=== PATIENT | female | born 1960 | race Caucasian/White ===

== ENCOUNTER 2017-04-01 08:21 | Emergency (ER) | payer BC ==
--- NOTE | 2017-04-01 08:57 | EDM.PDOC ---
ED HPI GENERAL MEDICAL PROBLEM - General Chief Complaint: Respiratory Problem Stated Complaint: COUGH, SHORTNESS OF BREATH Time Seen by Provider: 04/01/17 08:36 Source of Information: Reports: Patient History Limitations: Reports: No Limitations - History of Present Illness INITIAL COMMENTS - FREE TEXT/NARRATIVE: History of present illness: []Patient has had over a week of cold symptoms and was treated with an antibiotic without relief of symptoms. She uses a nebulizer and inhaler at home and inhaled steroid but has not been on prednisone. She continues wheezing and coughing. Review of systems: As per history of present illness and below otherwise all systems reviewed and negative. Past medical history: As per history of present illness and as reviewed below otherwise noncontributory. Surgical history: As per history of present illness and as reviewed below otherwise noncontributory. Social history: No reported history of drug or alcohol abuse. Family history: As per history of present illness and as reviewed below otherwise noncontributory. Physical exam: General: Well developed, well nourished in NAD HEENT: Atraumatic, normocephalic, pupils reactive, negative for conjunctival pallor or scleral icterus, mucous membranes moist, throat clear, neck supple, nontender, trachea midline. Lungs: Clear to auscultation, breath sounds equal bilaterally, chest nontender. Expiratory wheezing no chest wall retractions or respiratory distress Heart: S1S2, regular, negative for clicks, rubs, or JVD. Abdomen: Soft, nondistended, nontender. Negative for masses or hepatosplenomegaly. Negative for costovertebral tenderness. Pelvis: Stable nontender. Genitourinary: Deferred. Rectal: Deferred. Extremities: Atraumatic, negative for cords or calf pain. Neurovascular unremarkable. Neuro: Awake, alert, oriented. Cranial nerves II through XII unremarkable. Cerebellum unremarkable. Motor and sensory unremarkable throughout. Exam nonfocal. Diagnostics: [] Therapeutics: []On DuoNeb given Impression: []Asthma exacerbation Plan: []Prednisone 5 day burst, continue nebs at home as directed. Definitive disposition and diagnosis as appropriate pending reevaluation and review of above. - Related Data Allergies Allergy/AdvReac Type Severity Reaction Status Date / Time pseudoephedrine HCl Allergy Unknown Hives Verified 04/01/17 08:37 [facility] Home Meds: Home Meds LORazepam [Ativan] 0.5 mg PO DAILY PRN 11/22/13 [History] Levothyroxine 137 mcg PO ACBRK 11/22/13 [History] Metoprolol Tartrate 12.5 mg PO BID 11/22/13 [History] risperiDONE [Risperdal] 1 mg PO BID PRN 11/22/13 [History] risperiDONE [Risperdal] 2 mg PO BEDTIME 11/22/13 [History] risperiDONE [Risperdal] 4 mg PO ACBRK 11/22/13 [History] Albuterol [Ventolin HFA] 1 - 2 puff INH DAILY PRN 04/18/14 [History] Benztropine [Cogentin] 0.5 mg PO BID 04/01/17 [History] Losartan [Cozaar] 100 mg PO DAILY 04/01/17 [History] Sulfamethoxazole/Trimethoprim [Septra DS] 800 mg PO BID 04/01/17 [History] predniSONE [Prednisone] 20 mg PO DAILY #5 tablet 04/01/17 [Rx] Past Medical History HEENT History: Reports: None Cardiovascular History: Reports: Heart Failure, Hypertension Respiratory History: Reports: Bronchitis, Recurrent Gastrointestinal History: Reports: None Genitourinary History: Reports: Hydronephrosis 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 Musculoskeletal History: Reports: None Neurological History: Reports: None Psychiatric History: Reports: Anxiety, Depression, Schizophrenia Hematologic History: Reports: None Oncologic (Cancer) History: Reports: None Dermatologic History: Reports: None - Past Surgical History Female Surgical History: Reports: Section Social & Family History - Tobacco Use Smoking Status *Q: Current Every Day Smoker Years of Tobacco use: 40 Packs/Tins Daily: 0.5 Second Hand Smoke Exposure: Yes - Caffeine Use Caffeine Use: Reports: Coffee - Alcohol Use Days Per Week of Alcohol Use: 5 Number of Drinks Per Day: 2 Total Drinks Per Week: 10 - Recreational Drug Use Recreational Drug Use: No Drug Use in Last 12 Months: No Recreational Drug Type: Reports: Methamphetamine Recreational Drug Use Frequency: Not Used In Over 6 Months ED ROS GENERAL - Review of Systems Review Of Systems: See Below (See history of present illness) ED EXAM, GENERAL - Physical Exam Exam: See Below (See history of present illness) Course - Vital Signs Last Recorded V/S: Last Vital Signs Temp 98.7 F 04/01/17 10:31 Pulse 85 04/01/17 10:31 Resp 20 04/01/17 10:31 BP 112/65 04/01/17 10:31 Pulse Ox 92 L 04/01/17 10:31 - Orders/Labs/Meds Orders: Active Orders 24 hr Category Date Time Status RT Aerosol Therapy [RC] ASDIRECTED Care 04/01/17 09:23 Active Meds: Medications Discontinued Medications Generic Name Dose Route Start Last Admin Trade Name Gillian PRN Reason Stop Dose Admin Albuterol/Ipratropium 3 ml 04/01/17 09:22 04/01/17 09:36 Duoneb 3.0-0.5 Mg/3 Ml NEB 04/01/17 09:23 3 ml ONETIME ONE Administration Prednisone 60 mg 04/01/17 09:22 04/01/17 09:28 Prednisone PO 04/01/17 09:23 60 mg ONETIME ONE Administration Departure - Departure Time of Disposition: 10:14 Disposition: Home, Self-Care 01 Condition: Good Clinical Impression: Asthma exacerbation Qualifiers: Asthma severity: moderate Asthma persistence: unspecified Qualified Code(s): J45.901 - Unspecified asthma with (acute) exacerbation URI (upper respiratory infection) Qualifiers: Airway obstruction: without obstruction - Discharge Information Prescriptions: predniSONE [Prednisone] 20 mg PO DAILY #5 tablet Instructions: Asthma, Adult, Upper Respiratory Infection, Adult, [id number] Referrals: Colten Morales MD [Primary Care Provider] - (Follow-up as needed) Forms: ED Department Discharge Additional Instructions: The following information is given to patients seen in the emergency department who are being discharged to home. This information is to outline your options for follow-up care. We provide all patients seen in our emergency department with a follow-up referral. The need for follow-up, as well as the timing and circumstances, are variable depending upon the specifics of your emergency department visit. If you don't have a primary care physician on staff, we will provide you with a referral. We always advise you to contact your personal physician following an emergency department visit to inform them of the circumstance of the visit and for follow-up with them and/or the need for any referrals to a consulting specialist. The emergency department will also refer you to a specialist when appropriate. This referral assures that you have the opportunity for follow-up care with a specialist. All of these measure are taken in an effort to provide you with optimal care, which includes your follow-up. Under all circumstances we always encourage you to contact your private physician who remains a resource for coordinating your care. When calling for follow-up care, please make the office aware that this follow-up is from your recent emergency room visit. If for any reason you are refused follow-up, please contact the [facility] Emergency Department at and asked to speak to the emergency department charge nurse. Prednisone 1 tablet daily for 5 days then stop. His nebs as directed for wheezing and shortness of breath. Follow-up with your primary care physician as needed. - My Orders Last 24 Hours: My Active Orders 04/01/17 09:23 RT Aerosol Therapy [RC] ASDIRECTED - Assessment/Plan Last 24 Hours: My Active Orders 04/01/17 09:23 RT Aerosol Therapy [RC] ASDIRECTED
[2017-04-01] MEDS ORDERED: predniSONE 20 MG Tab PO ONE (09:22)
[2017-04-01] MEDS ORDERED: Albuterol/Ipratropium 3.0-0.5 MG/3 ML Neb Soln NEB ONE (09:22)
[2017-04-01 10:36] VITALS: BP 112/65
== END 2017-04-01 10:31 | disposition home or self-care (01) ==
LOC: MW.ED 08:21
DX: J45.901 Unspecified asthma with (acute) exacerbation (principal); J06.9 Acute upper respiratory infection, unspecified; I11.0 Hypertensive heart disease with heart failure; I50.9 Heart failure, unspecified; F17.210 Nicotine dependence, cigarettes, uncomplicated; Z88.8 Allergy status to other drugs, medicaments and biological substances; Z79.899 Other long term (current) drug therapy
CPT/HCPCS: 94640; 99283; A9270

== ENCOUNTER 2017-04-24 21:26 | Emergency (ER) | payer BC ==
[2017-04-24] MEDS ORDERED: Albuterol/Ipratropium 3.0-0.5 MG/3 ML Neb Soln ONE (21:32)
[2017-04-24] MEDS ORDERED: methylPREDNISolone Sodium Succinate 125 MG/2 ML SDV IVPUSH ONE (21:38)
[2017-04-24] MEDS ORDERED: Sodium Chloride 0.9% 10 ML Syringe FLUSH PRN (21:38)
[2017-04-24] MEDS ORDERED: Sodium Chloride 0.9% 2.5 ML Syringe FLUSH PRN (21:38)
--- NOTE | 2017-04-24 21:41 | EDM.PDOC ---
<Ama Pang - Last Filed: 04/24/17 21:53> ED HPI GENERAL MEDICAL PROBLEM - General Chief Complaint: Respiratory Problem Stated Complaint: TROUBLE BREATHING Time Seen by Provider: 04/24/17 21:39 Source of Information: Reports: Patient, Family History Limitations: Reports: No Limitations - History of Present Illness INITIAL COMMENTS - FREE TEXT/NARRATIVE: HISTORY AND PHYSICAL: []6-year-old female presenting with shortness of breath she has history of COPD and exacerbation History of Present Illness: []Patient was having difficulty for the last couple days History of asthma History of dyspnea Smoking Heart failure Review of Systems: As per history of present illness and below otherwise all systems reviewed and negative. Past medical history: As per history of present illness and as reviewed below otherwise noncontributory. Surgical history: As per history of present illness and as reviewed below otherwise noncontributory. Social history: No reported history of drug or alcohol abuse. Family history: As per history of present illness and as reviewed below otherwise noncontributory. Physical exam: Alert and oriented female answering questions cannot speak in full sentences due to shortness of breath. HEENT: Atraumatic, normocehpalic, pupils reactive, negative for conjunctival pallor or scleral icterus, mucous membranes moist, throat red neck supple, nontender, trachea midline. Panic membranes are erythematous on the left. Speaking normally without any hoarseness. Lungs: Mild bibasilar crackles on auscultation, shallow breath sounds equal bilaterally, chest non tender. Heart: S1S2, regular, negative for clicks, rubs, or JVD. Abdomen: Soft, nondistended, nontender. Negative for masses or hepatossplenmegaly. Negative for costovertebral tenderness. Pelvis: Stable nontender. Genitourinary: Deferred. Rectal: Deferred Extremities: Atraumatic, negative for cords or calf pain. Neurovascular unremarkable. Neuro: Awake, alert, oriented. Cranial nerves II through XII unremarkable. Cerebellum unremarkable. Motor and sensory unremarkable throughout. Exam nonfocal. After her first RT treatment lungs improved but continues to have shallow breath sounds and mild crackles. Report has been given to Dr. Smith for continuing care. Diagnostics: [CBC CMP chest x-ray] influenza rapid strep BNP Therapeutics: []DuoNeb treatment Solu-Medrol IV Impression: []COPD exacerbation Otitis media Plan: [] Definitive disposition and diagnosis as appropriate pending reevaluation and review of above. Onset: Gradual Location: Reports: Head, Chest Quality: Reports: Same as Previous Episode Severity: Moderate Improves with: Reports: None Worsens with: Reports: None Associated Symptoms: Reports: Cough, Shortness of Breath no pain Pain Score (Numeric/FACES): 0 - Related Data Allergies Allergy/AdvReac Type Severity Reaction Status Date / Time pseudoephedrine HCl Allergy Unknown Hives Verified 04/24/17 21:41 [From Sudafed] Home Meds: Home Meds LORazepam [Ativan] 0.5 mg PO DAILY PRN 11/22/13 [History] Levothyroxine 137 mcg PO ACBRK 11/22/13 [History] Metoprolol Tartrate 12.5 mg PO BID 11/22/13 [History] risperiDONE [Risperdal] 1 mg PO BID PRN 11/22/13 [History] risperiDONE [Risperdal] 2 mg PO BEDTIME 11/22/13 [History] risperiDONE [Risperdal] 4 mg PO ACBRK 11/22/13 [History] Albuterol [Ventolin HFA] 1 - 2 puff INH DAILY PRN 04/18/14 [History] Benztropine [Cogentin] 0.5 mg PO BID 04/01/17 [History] Losartan [Cozaar] 100 mg PO DAILY 04/01/17 [History] Sulfamethoxazole/Trimethoprim [Septra DS] 800 mg PO BID 04/01/17 [History] predniSONE [Prednisone] 20 mg PO DAILY #5 tablet 04/01/17 [Rx] Past Medical History HEENT History: Reports: None Cardiovascular History: Reports: Heart Failure, Hypertension Respiratory History: Reports: Bronchitis, Recurrent Gastrointestinal History: Reports: None Genitourinary History: Reports: Hydronephrosis 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 Musculoskeletal History: Reports: None Neurological History: Reports: None Psychiatric History: Reports: Anxiety, Depression, Schizophrenia Hematologic History: Reports: None Oncologic (Cancer) History: Reports: None Dermatologic History: Reports: None - Past Surgical History Female Surgical History: Reports: Section Social & Family History - Tobacco Use Smoking Status *Q: Current Every Day Smoker Years of Tobacco use: 40 Packs/Tins Daily: 0.5 Second Hand Smoke Exposure: Yes - Caffeine Use Caffeine Use: Reports: Coffee - Alcohol Use Days Per Week of Alcohol Use: 5 Number of Drinks Per Day: 2 Total Drinks Per Week: 10 - Recreational Drug Use Recreational Drug Use: No Drug Use in Last 12 Months: No Recreational Drug Type: Reports: Methamphetamine Recreational Drug Use Frequency: Not Used In Over 6 Months ED ROS GENERAL - Review of Systems Review Of Systems: ROS reveals no pertinent complaints other than HPI. ED EXAM, GENERAL - Physical Exam Exam: See Below (See dictation) Course - Vital Signs Last Recorded V/S: Last Vital Signs Temp 97.8 F 04/24/17 21:30 Pulse 120 H 04/24/17 21:30 Resp 24 H 04/24/17 21:30 BP 102/65 04/24/17 21:30 Pulse Ox 78 L 04/24/17 21:30 - Orders/Labs/Meds Orders: Active Orders 24 hr Category Date Time Status EKG Documentation Completion [RC] STAT Care 04/24/17 21:49 Active CTA Chest W WO Contrast [Ang Chest] [CT] Stat Exams 04/24/17 22:12 Stop Req Chest 1V Frontal [CR] Stat Exams 04/24/17 21:38 Taken CULTURE STREP A CONFIRMATION [RM] Stat Lab 04/24/17 22:45 Results INFLUENZA A+B AG SCREEN [RM] Stat Lab 04/24/17 23:08 Uncollected STREP SCRN A RAPID W CULT CONF [RM] Stat Lab 04/24/17 22:45 Results Sodium Chloride 0.9% [Saline Flush] Med 04/24/17 21:38 Active 10 ml FLUSH ASDIRECTED PRN Sodium Chloride 0.9% [Saline Flush] Med 04/24/17 21:38 Active 2.5 ml FLUSH ASDIRECTED PRN Saline Lock Insert [OM.PC] Stat Oth 04/24/17 21:38 Ordered Medication Orders Sodium Chloride (Saline Flush) 10 ml FLUSH ASDIRECTED PRN PRN Reason: Keep Vein Open Sodium Chloride (Saline Flush) 2.5 ml FLUSH ASDIRECTED PRN PRN Reason: Keep Vein Open Labs: Laboratory Tests 04/24/17 04/24/17 04/24/17 Range/Units 22:19 22:19 22:19 WBC 4.18 (4.0-11.0) K/uL RBC 3.77 L (4.30-5.90) M/uL Hgb 12.8 (12.0-16.0) g/dL Hct 38.8 (36.0-46.0) % MCV 102.9 H (80.0-98.0) fL MCH 34.0 H (27.0-32.0) pg MCHC 33.0 (31.0-37.0) g/dL RDW Std Deviation 51.8 (28.0-62.0) fl RDW Coeff of Narayan 14 (11.0-15.0) % Plt Count 139 L (150-400) K/uL MPV 9.70 (7.40-12.00) fL Neut % (Auto) 76.0 (48.0-80.0) % Lymph % (Auto) 9.3 L (16.0-40.0) % Sully % (Auto) 11.2 (0.0-15.0) % Eos % (Auto) 3.3 (0.0-7.0) % Baso % (Auto) 0.2 (0.0-1.5) % Neut # (Auto) 3.2 (1.4-5.7) K/uL Lymph # (Auto) 0.4 L (0.6-2.4) K/uL Sully # (Auto) 0.5 (0.0-0.8) K/uL Eos # (Auto) 0.1 (0.0-0.7) K/uL Baso # (Auto) 0.0 (0.0-0.1) K/uL Nucleated RBC % 0.0 /100WBC Nucleated RBCs # 0 K/uL INR D-Dimer, Quantitative (0.0-0.52) mg/LFEU Sodium 136 (136-146) mmol/L Potassium 3.2 L (3.5-5.1) mmol/L Chloride 101 (98-110) mmol/L Carbon Dioxide 23 (21-31) mmol/L BUN 25 H (6.0-23.0) mg/dL Creatinine 1.7 H (0.6-1.5) mg/dL Est Cr Clr Drug Dosing 32.29 mL/min Estimated GFR (MDRD) 31.2 ml/min Glucose 130 H (60-110) mg/dL Calcium 8.9 (8.8-10.8) mg/dL Total Bilirubin 0.4 (0.1-1.5) mg/dL AST 24 (5-40) IU/L ALT 29 (8-54) IU/L Alkaline Phosphatase 58 (40-150) Creatine Kinase (9-236) IU/L CK-MB (CK-2) (0-6.6) ng/ml Troponin I (0.0-0.29) NG/ML B-Natriuretic Peptide < 15 (<100) PG/ML Total Protein 6.9 (6.0-8.0) g/dL Albumin 4.1 (3.5-5.0) g/dL Globulin 2.8 (2.0-3.5) g/dL Albumin/Globulin Ratio 1.5 (1.3-2.8) 04/24/17 04/24/17 04/24/17 Range/Units 22:19 22:19 22:19 WBC (4.0-11.0) K/uL RBC (4.30-5.90) M/uL Hgb (12.0-16.0) g/dL Hct (36.0-46.0) % MCV (80.0-98.0) fL MCH (27.0-32.0) pg MCHC (31.0-37.0) g/dL RDW Std Deviation (28.0-62.0) fl RDW Coeff of Narayan (11.0-15.0) % Plt Count (150-400) K/uL MPV (7.40-12.00) fL Neut % (Auto) (48.0-80.0) % Lymph % (Auto) (16.0-40.0) % Sully % (Auto) (0.0-15.0) % Eos % (Auto) (0.0-7.0) % Baso % (Auto) (0.0-1.5) % Neut # (Auto) (1.4-5.7) K/uL Lymph # (Auto) (0.6-2.4) K/uL Sully # (Auto) (0.0-0.8) K/uL Eos # (Auto) (0.0-0.7) K/uL Baso # (Auto) (0.0-0.1) K/uL Nucleated RBC % /100WBC Nucleated RBCs # K/uL INR 1.01 D-Dimer, Quantitative 0.24 (0.0-0.52) mg/LFEU Sodium (136-146) mmol/L Potassium (3.5-5.1) mmol/L Chloride (98-110) mmol/L Carbon Dioxide (21-31) mmol/L BUN (6.0-23.0) mg/dL Creatinine (0.6-1.5) mg/dL Est Cr Clr Drug Dosing mL/min Estimated GFR (MDRD) ml/min Glucose (60-110) mg/dL Calcium (8.8-10.8) mg/dL Total Bilirubin (0.1-1.5) mg/dL AST (5-40) IU/L ALT (8-54) IU/L Alkaline Phosphatase (40-150) Creatine Kinase 195 (9-236) IU/L CK-MB (CK-2) 3.2 (0-6.6) ng/ml Troponin I < 0.10 (0.0-0.29) NG/ML B-Natriuretic Peptide (<100) PG/ML Total Protein (6.0-8.0) g/dL Albumin (3.5-5.0) g/dL Globulin (2.0-3.5) g/dL Albumin/Globulin Ratio (1.3-2.8) Meds: Medications Generic Name Dose Route Start Last Admin Trade Name Freq PRN Reason Stop Dose Admin Sodium Chloride 10 ml 04/24/17 21:38 Saline Flush FLUSH ASDIRECTED PRN Keep Vein Open Sodium Chloride 2.5 ml 04/24/17 21:38 Saline Flush FLUSH ASDIRECTED PRN Keep Vein Open Discontinued Medications Generic Name Dose Route Start Last Admin Trade Name Freq PRN Reason Stop Dose Admin Albuterol/Ipratropium Confirm 04/24/17 21:32 04/24/17 21:38 Duoneb 3.0-0.5 Mg/3 Ml Administered 04/24/17 21:33 3 ml Dose Administration 3 ml .ROUTE .STK-MED ONE Methylprednisolone Sodium Succinate 125 mg 04/24/17 21:38 04/24/17 22:57 Solu-Medrol IVPUSH 04/24/17 21:39 125 mg ONETIME ONE Administration Departure - Departure Time of Disposition: 21:53 Disposition: Home, Self-Care 01 Condition: Fair Clinical Impression: COPD with acute exacerbation, Influenza Left otitis media Qualifiers: Otitis media type: unspecified Qualified Code(s): H66.92 - Otitis media, unspecified, left ear - Discharge Information Referrals: Colten Morales MD [Primary Care Provider] - Forms: ED Department Discharge Additional Instructions: Medication as prescribed Continue current home medications Return if symptoms persist or worsen Rest fluids nutrition Follow-up with primary care in 2 weeks Strongly encouraged to use your nebulizer treatments of albuterol 4 times daily for one week then as needed Continue home oxygen at 3 L Follow-up with primary care in 2 weeks The following information is given to patients seen in the emergency department who are being discharged to home. This information is to outline your options for follow-up care. We provide all patients seen in our emergency department with a follow-up referral. The need for follow-up, as well as the timing and circumstances, are variable depending upon the specifics of your emergency department visit. If you don't have a primary care physician on staff, we will provide you with a referral. We always advise you to contact your personal physician following an emergency department visit to inform them of the circumstance of the visit and for follow-up with them and/or the need for any referrals to a consulting specialist. The emergency department will also refer you to a specialist when appropriate. This referral assures that you have the opportunity for follow-up care with a specialist. All of these measure are taken in an effort to provide you with optimal care, which includes your follow-up. Under all circumstances we always encourage you to contact your private physician who remains a resource for coordinating your care. When calling for follow-up care, please make the office aware that this follow-up is from your recent emergency room visit. If for any reason you are refused follow-up, please contact the [facility] emergency department at and asked to speak to the emergency department charge nurse. - My Orders Last 24 Hours: My Active Orders 04/24/17 22:12 CTA Chest W WO Contrast [Ang Chest] [CT] Stat 04/24/17 23:08 INFLUENZA A+B AG SCREEN [RM] Stat - Assessment/Plan Last 24 Hours: My Active Orders 04/24/17 22:12 CTA Chest W WO Contrast [Ang Chest] [CT] Stat 04/24/17 23:08 INFLUENZA A+B AG SCREEN [RM] Stat <Greg Linda - Last Filed: 04/24/17 23:23> ED HPI GENERAL MEDICAL PROBLEM - History of Present Illness INITIAL COMMENTS - FREE TEXT/NARRATIVE: I've seen and examined the patient Sarah above, patient is in no distress she requires of baseline 3 L of home oxygen with her history of COPD, I've seen her after DuoNeb and Solu-Medrol IV she is doing quite well in no distress red considered CTA due to her initial vitals however she is flu positive and her d- dimer is negative so hence CTA chest was discontinued She is in no distress breathing normally at her home oxygen level of 3 L nasal cannula She is generally noncompliant with nebulizer at home Currently no fever nausea vomiting chills sweats no chest pain shortness breath headache dizziness or palpitation no bowel or urine symptoms Patient is offered an observation stay here at the hospital she declined/refused Gen. no acute distress HEENT NCAT PERRLA EOMI nares patent oropharynx mild erythema no exudates tympanic membranes injected with loss of landmarks no bulge no mastoid tenderness Chest clear throughout no wheeze or crackle CV regular rate and rhythm no murmur Abdomen soft nontender nondistended bowel sounds in all 4 quadrants obese Extremities four-inch motion strength 5 out of 5 no edema DOCUMENTATION BILLING CLERK alert nonfocal Lab as below Assessment Influenza COPD exacerbation resolved Chronic history of baseline Plan Tamiflu Phenergan with codeine Medrol Dosepak Continue current home medications Rest fluids nutrition Return if symptoms persist or worsen Patient offered observation admission she refused desiring to return home
[2017-04-24 21:45] VITALS: BP 102/65
--- NOTE | 2017-04-27 13:36 | CR ---
EXAM DATE: 04/24/17 PATIENT'S AGE: 56 Patient: THONY NEW Facility: [place], [place] Site . Site : [id number] Study: XRay Chest [id number] 10:23:11 PM Ordering Physician: Doctor Alan Final Report: INDICATION: Cough and shortness of breath TECHNIQUE: Chest 2 views COMPARISON: 01/26/2015 FINDINGS: Cardiovascular and mediastinum: Heart size and vasculature are normal in caliber and appearance. Lungs and pleural spaces: Suspected airspace infiltrate in the medial right lower lobe. Remainder of the lungs and pleural spaces are clear. Bones and soft tissues: No significant findings. IMPRESSION: Suspected right lower lobe pneumonia. Dictated by Jose Angel Devlin MD @ 04/24/2017 10:43:54 PM Dictated by: Jose Angel Devlin MD @ 04/24/2017 22:43:58 (Electronic Signature) Report Signed by Proxy. TONY
== END 2017-04-24 23:41 | disposition home or self-care (01) ==
LOC: MW.ED 21:26
DX: J44.1 Chronic obstructive pulmonary disease with (acute) exacerbation (principal); H66.92 Otitis media, unspecified, left ear; F17.210 Nicotine dependence, cigarettes, uncomplicated; I11.0 Hypertensive heart disease with heart failure; I50.9 Heart failure, unspecified; F32.9 Major depressive disorder, single episode, unspecified; F20.9 Schizophrenia, unspecified; Z79.899 Other long term (current) drug therapy; Z88.8 Allergy status to other drugs, medicaments and biological substances
CPT/HCPCS: 36415; 71045; 80053; 82550; 82553; 83880; 84484; 85025; 85379; 85610; 87081; 87804; 87880; 93005; 96374; 99285; J2930; 99284

== ENCOUNTER 2022-09-27 06:51 | Emergency (ER) | payer BC ==
[2022-09-27] MEDS ORDERED: Sodium Chloride 0.9% 2.5 ML Syringe FLUSH PRN (07:12)
[2022-09-27] MEDS ORDERED: Sodium Chloride 0.9% 10 ML Syringe FLUSH PRN (07:12)
[2022-09-27] MEDS ORDERED: Sodium Chloride 0.9% 1,000 ML IV ONE ×2 (07:14→09:10)
[2022-09-27 07:23] LABS: BASOPHILS PERCENT AUTO 0.2 % (0.0-1.5); EOSINOPHILS ABSOLUTE AUTO 0.2 K/uL (0.0-0.7); EOSINOPHILS PERCENT AUTO 1.6 % (0.0-7.0); HEMATOCRIT 36.1 % (36.0-46.0); HEMOGLOBIN 11.8 g/dL (12.0-16.0); LYMPHOCYTES ABSOLUTE AUTO 0.9 K/uL (0.6-2.4); LYMPHOCYTES PERCENT AUTO 7.7 % (16.0-40.0); MEAN CORPUSCULAR HGB CONC 32.7 g/dL (31.0-37.0); MEAN CORPUSCULAR VOLUME 97.8 fL (80.0-98.0); MONOCYTES ABSOLUTE AUTO 0.8 K/uL (0.0-0.8); MONOCYTES PERCENT AUTO 6.9 % (0.0-15.0); NEUTROPHILS ABSOLUTE AUTO 9.3 K/uL (1.4-5.7); NEUTROPHILS PERCENT AUTO 83.6 % (48.0-80.0); PLATELET COUNT,PLT 218 K/uL (150-400); RED BLOOD CELL COUNT 3.69 M/uL (4.30-5.90)
[2022-09-27 07:44] LABS: INR 1.06 (0.86-1.11)
[2022-09-27] MEDS ORDERED: Norepinephrine Bit/D5W Premix 250 ML IV SCH (07:45)
[2022-09-27 07:49] LABS: A/G RATIO 0.8 (0.9-1.6); ALBUMIN 3.4 g/dL (3.4-5.0); BILIRUBIN TOTAL 0.9 mg/dL (0.2-1.0); CALCIUM 9.2 mg/dL (8.5-10.1); CARBON DIOXIDE,CO2 26.2 mmol/L (21.0-32.0); CREATININE 1.6 mg/dL (0.6-1.0); EST CRCL DRUG DOSING (CG) 31.88 mL/min; POTASSIUM,K 3.8 mmol/L (3.5-5.1); PROTEIN TOTAL,TP 7.5 g/dL (6.4-8.2)
[2022-09-27] MEDS ORDERED: Iopamidol 755 Mg/ML 100 ML Bottle IVPUSH ONE (08:25)
[2022-09-27] MEDS ORDERED: Piperacillin/Tazobactam 3.375 GM in Sodium Chloride 0.9% 100 ML IV ONE (09:09)
[2022-09-27 10:08] VITALS: BP 107/70; PULSE 68
== END 2022-09-27 10:11 ==
LOC: MW.ED 06:51
DX: K35.32 Acute appendicitis with perforation, localized peritonitis, and gangrene, without abscess (principal); I11.0 Hypertensive heart disease with heart failure; I50.9 Heart failure, unspecified; J44.9 Chronic obstructive pulmonary disease, unspecified; Z98.890 Other specified postprocedural states; Z88.8 Allergy status to other drugs, medicaments and biological substances; Z79.899 Other long term (current) drug therapy
CPT/HCPCS: 36415; 71275; 74177; 80053; 83605; 83690; 83880; 84484; 85025; 85610; 86850; 86900; 86901; 87040; 93005; 96365; 96366; 96375; 99285; J2543; J3490; J7030; Q9967; 93010